=== PATIENT | male | born 1950 | race Caucasian/White ===

== ENCOUNTER → 2020-10-20 07:58 | Outpatient (BNVA) | payer OTHER, SELFPAY | PROVIDERS: Family Provider Internal Medicine; PCP Family Medicine; Visit Provider Urology | DX: N40.1 Benign prostatic hyperplasia with lower urinary tract symptoms (principal); N39.41 Urge incontinence; C61 Malignant neoplasm of prostate; N13.8 Other obstructive and reflux uropathy; R39.9 Unspecified symptoms and signs involving the genitourinary system | CPT/HCPCS: 81003 ==

== ENCOUNTER 2020-11-17 10:57 | Emergency (ER) | payer OTHER, SELFPAY ==
[2020-11-17 11:04] VITALS: BP 220/118; PULSE 74; RESP 15; TEMP 36.6; O2SAT 96; BMI 36.3
--- NOTE | 2020-11-17 11:22 | XRR_ITS ---
PROCEDURE INFORMATION: Exam: XR Chest Exam date and time: 11/17/2020 11:23 AM Age: 70 years old Clinical indication: Chest pain; Type not specified TECHNIQUE: Imaging protocol: XR of the chest. Views: 1 view. COMPARISON: No relevant prior studies available. FINDINGS: Lungs: Unremarkable. No consolidation. Pleural spaces: Unremarkable. No pleural effusion. No pneumothorax. Heart/Mediastinum: Unremarkable. No cardiomegaly. Bones/joints: Unremarkable. XR/XR chest 1V portable [id number] IMPRESSION: No acute findings.
--- NOTE | 2020-11-17 11:22 | ECG_ITS ---
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 Measurements Intervals [place] Rate: 62 P: 62 [place]: 136 QRS: -48 QRSD: 126 T: 3 QT: 448 QTc: 457 Interpretive Statements SINUS RHYTHM RIGHT BUNDLE BRANCH BLOCK [120+ ms QRS DURATION, UPRIGHT V1, 40+ ms S IN I/aVL/V4/V5/V6] LEFT ANTERIOR FASCICULAR BLOCK [QRS AXIS <= -45, QR IN I, RS IN II] MODERATE VOLTAGE CRITERIA FOR LVH, CONSIDER NORMAL VARIANT [MEETS CRITERIA IN ONE OF: R(aVL), S(V1), R(V5), R(V5/V6)+S(V1)] No previous ECG available for comparison Electronically Signed On 11-17-2020 20:10:53 CDT by Adrian Palacios M.D. [email or web address] hospitalPromise[facility].[employer]/store/NU/[id number] cesar
--- NOTE | 2020-11-17 11:32 | ED_ITS ---
HPI - Chest Pain General: Chief Complaint: Chest Pain Stated Complaint: CP LAST NIGHT AND TODAY Time Seen by Provider: 11/17/20 11:06 History of Present Illness: HPI narrative: 70-year-old male presents emergency room with chest pain he had a couple of weeks ago then last night had episode again where the chest pain both times were at rest usually resolves spontaneously after 30 minutes. 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 He has no known history of heart disease. He is not diabetic. MD complaint: chest discomfort Onset (ago): hour(s) Timing of current episode: episodic Prior episodes: Yes Onset: during rest Pain location: substernal and left chest Pain radiation: back Severity: moderate Quality: tightness and heaviness Relieving factors: rest Exacerbating factors: nothing Associated symptoms: Deny abdominal pain, diaphoresis, dyspnea, fever(s), leg edema, nausea, palpitations, sense of impending doom, syncope or vomiting Treatment prior to arrival: none Review of Systems Const: Denies: fever(s) or diaphoresis Card: Denies: palpitations or syncope Resp: Denies: dyspnea GI: Denies: abdominal pain, nausea or vomiting [facility] ED PFSH: Medical History (Updated 11/17/20 @ 14:43 by Neftaly Sanchez DO) Adenocarcinoma of prostate BPH w urinary obs/LUTS Chronic prostatitis Hypertension Obesity PTSD (post-traumatic stress disorder) Type 2 diabetes mellitus Surgical History History of back surgery History of left knee replacement History of tonsillectomy Family History Father , [address] No problems noted. Mother , IN HER 80'S Cancer Lung Social History (Updated 11/17/20 @ 11:11 by Shahzad Cantrell RN) Smoking and tobacco status: former smoker Alcohol intake: current Alcohol intake frequency: holidays/special occasions only Substance/Drug Use: never Marital status: Current occupational status: retired History of recent travel: No Physical Exam Const: COMMON NORMALS: no acute distress GENERAL APPEARANCE: cooperative and comfortable ORIENTATION/CONSCIOUSNESS: Yes awake, Yes oriented to person, Yes oriented to place and Yes oriented to time HENMT: COMMON NORMALS: normocephalic, atraumatic and hearing grossly normal bilaterally HEAD & SCALP: normocephalic and atraumatic Neck/C-Spine: COMMON NORMALS: no JVD Resp: COMMON NORMALS: normal respiratory effort, No retractions, No use of accessory muscles and clear to auscultation bilaterally AUSCULTATION: clear to auscultation bilaterally Cardio: COMMON NORMALS: no JVD, regular rate, regular rhythm and No murmurs present (Cardio) RATE: regular rate RHYTHM: regular rhythm GI: COMMON NORMALS: Soft to palpation and No hepatosplenomegaly present AUSCULTATION: Yes normoactive bowel sounds PALPATION: Yes Soft to palpation, No Tenderness to palpation present (GI), No Guarding due to palpation present (GI) and Yes No hepatosplenomegaly present Extremity: COMMON NORMALS: normal to inspection, capillary refill normal, no clubbing, cyanosis or edema, no calf tenderness and no pedal edema Neuro: SENSORIUM/ORIENTATION: Yes oriented to person, Yes oriented to place and Yes oriented to time Skin: COMMON NORMALS: no rashes or lesions noted GENERAL SKIN EXAM: no rashes or lesions noted Course Vital Signs: Vital signs: Vital Signs Temperature 97.9 F 11/17/20 11:04 Pulse Rate 55 L 11/17/20 14:59 Respiratory Rate 19 H 11/17/20 14:59 Blood Pressure 195/95 11/17/20 14:59 Pulse Oximetry 96 11/17/20 14:59 MDM - Chest Pain MDM Narrative: Medical decision making narrative: 2-hour troponin is negative. Organ to take him off his Viagra start him on isosorbide mononitrate and baby aspirin for any recurrent symptoms return. He is feeling fine at this time. We will set him up for an outpatient stress test. Return if he has any worsening of symptoms. Lab Data: Attestation: I reviewed the patient's lab results. Labs: Lab Results 11/17/20 11/17/20 11/17/20 Range/Units 11:10 11:10 11:10 WBC 5.9 (4.0-10.0) 10^3/ uL RBC 4.93 (4.1-5.3) 10^6/u L Hgb 13.8 (11.7-16.6) g/dL Hct 43.9 (42.0-52.0) % MCV 89.0 (80-94) fL MCH 28.0 (28.0-34.0) pg MCHC 31.4 (30.0-36.0) g/dL RDW 14.3 (12.1-15.1) % Plt Count 210 (130-400) 10^3/c mm MPV 9.6 (7.4-10.4) fL Neut % (Auto) 64.6 % Lymph % (Auto) 22.3 % Jewell % (Auto) 6.2 % Eos % (Auto) 4.7 % Baso % (Auto) 1.0 % Neut # (Auto) 3.83 (1.8-7.7) 10^3/u L Lymph # (Auto) 1.3 (0.8-4.8) 10^3/u L Jewell # (Auto) 0.4 (0.2-0.9) 10^3/u L Eos # (Auto) 0.3 (0.0-0.8) 10^3/u L Baso # (Auto) 0.1 (0.0-0.1) 10^3/u L Nucleated RBC % (a uto) 0 % Nucleated RBCs # 0.0 /100WBC Sodium 136 (136-145) mmol/L Potassium 4.3 (3.5-5.1) mmol/L Chloride 98 (98-107) mmol/L Carbon Dioxide 28 (22-29) mmol/L Anion Gap 14.3 (5-19) BUN 10 (8-23) mg/dL Creatinine 0.8 (0.7-1.2) mg/dL GFR Calculation Not Reportable Glucose 161 H (65-115) mg/dL Calculated Osmolal ity 285 (285-295) mOsm/k g Calcium 8.9 (8.5-10.5) mg/dL Total Bilirubin 0.4 (0.15-1.2) mg/dL AST 10 (0-40) U/L ALT 12 (0-41) U/L Alkaline Phosphata se 82 (40-130) IU/L Troponin T Baselin e 16 H (0-15) ng/L Troponin T 120 Min christian (0-15) ng/L Delta Troponin T (0-10) ABS# Total Protein 7.1 (6.6-8.7) g/dL Albumin 4.2 (3.5-5.2) g/dL Globulin 2.9 (1.3-4.6) g/dL 11/17/20 Range/Units 13:18 WBC (4.0-10.0) 10^3/ uL RBC (4.1-5.3) 10^6/u L Hgb (11.7-16.6) g/dL Hct (42.0-52.0) % MCV (80-94) fL MCH (28.0-34.0) pg MCHC (30.0-36.0) g/dL RDW (12.1-15.1) % Plt Count (130-400) 10^3/c mm MPV (7.4-10.4) fL Neut % (Auto) % Lymph % (Auto) % Jewell % (Auto) % Eos % (Auto) % Baso % (Auto) % Neut # (Auto) (1.8-7.7) 10^3/u L Lymph # (Auto) (0.8-4.8) 10^3/u L Jewell # (Auto) (0.2-0.9) 10^3/u L Eos # (Auto) (0.0-0.8) 10^3/u L Baso # (Auto) (0.0-0.1) 10^3/u L Nucleated RBC % (a uto) % Nucleated RBCs # /100WBC Sodium (136-145) mmol/L Potassium (3.5-5.1) mmol/L Chloride (98-107) mmol/L Carbon Dioxide (22-29) mmol/L Anion Gap (5-19) BUN (8-23) mg/dL Creatinine (0.7-1.2) mg/dL GFR Calculation Glucose (65-115) mg/dL Calculated Osmolal ity (285-295) mOsm/k g Calcium (8.5-10.5) mg/dL Total Bilirubin (0.15-1.2) mg/dL AST (0-40) U/L ALT (0-41) U/L Alkaline Phosphata se (40-130) IU/L Troponin T Baselin e (0-15) ng/L Troponin T 120 Min christian 14.64 (0-15) ng/L Delta Troponin T -1.36 L (0-10) ABS# Total Protein (6.6-8.7) g/dL Albumin (3.5-5.2) g/dL Globulin (1.3-4.6) g/dL Discharge Plan Discharge Patient Disposition: Home Clinical Impression: Chest pain Condition: Stable Prescriptions: New isosorbide mononitrate 30 mg tablet extended release 24 hr 30 mg PO DAILY Qty: 30 RF: 0 aspirin 81 mg tablet,delayed release (DR/EC) 81 mg PO DAILY Qty: 30 RF: 0 Discontinued sildenafil 100 mg tablet 100 mg PO PRN RF: 0 No Action tamsulosin 0.4 mg capsule 0.8 mg PO QPM RF: 0 trazodone 100 mg tablet 150 mg PO BEDTIME PRN (Reason: Sleep) RF: 0 rivaroxaban 20 mg tablet 20 mg PO QPM RF: 0 oxybutynin chloride 5 mg tablet 5 mg PO BID Qty: 60 RF: 3 doxycycline monohydrate 100 mg Tablet 100 mg PO BEDTIME RF: 0 Tylenol Extra Strength 500 mg Tablet 1,000 mg PO Q4H PRN (Reason: tooth pain) RF: 0 metformin 1,000 mg Tablet 1,000 mg PO BEDTIME RF: 0 lisinopril-hydrochlorothiazide 20-25 mg Tablet 1 tab PO .QD PT UNSURE TAKES RF: 0 [place] 1 tab PO Q6H PRN (Reason: Pain) RF: 0 Vitamin B-12 1 tab PO DAILY PRN (Reason: unknown) RF: 0 Discharge Orders: Discharge ED (Routine); Ordered 11/17/20 Ordered By: Neftaly Sanchez Referrals: Carmen Connell MD [Primary Care Provider] - Discharge Diet: Usual diet Discharge Activity: Resume usual activity Patient Instructions: Opioid Safety Activity Restrictions/Additional Instructions: Very important that you do not take any of the sildenafil. Start aspirin daily and isosorbide mononitrate once daily follow-up with your primary care docto within the week. Case management will help arrange for a stress test. Coding Level of Care Code ED Senior Web Analyst for Erlin Fwd Exam Comprehensive
[2020-11-17 11:35] LABS: Basophils # 0.1 10^3/uL (0.0-0.1); Eosinophils # 0.3 10^3/uL (0.0-0.8); Eosinophils % 4.7 %; Hematocrit 43.9 % (42.0-52.0); Hemoglobin 13.8 g/dL (11.7-16.6); Lymphocytes # 1.3 10^3/uL (0.8-4.8); Lymphocytes % 22.3 %; Mean Corpuscular HGB Conc 31.4 g/dL (30.0-36.0); Mean Platelet Volume 9.6 fL (7.4-10.4); Monocytes # 0.4 10^3/uL (0.2-0.9); Monocytes % 6.2 %; Neutrophils # 3.83 10^3/uL (1.8-7.7); Neutrophils % 64.6 %; Nucleated Red Blood Cells % 0 %; Platelet Count 210 10^3/cmm (130-400); Red Blood Count 4.93 10^6/uL (4.1-5.3); Red Cell Distribution Width 14.3 % (12.1-15.1); White Blood Count 5.9 10^3/uL (4.0-10.0)
[2020-11-17 11:50] LABS: Alanine Aminotransferase 12 U/L (0-41); Albumin Level 4.2 g/dL (3.5-5.2); Alkaline Phosphatase 82 IU/L (40-130); Anion Gap 14.3 (5-19); Aspartate Amino Transferase 10 U/L (0-40); Blood Urea Nitrogen 10 mg/dL (8-23); Calcium 8.9 mg/dL (8.5-10.5); Carbon Dioxide 28 mmol/L (22-29); Chloride 98 mmol/L (98-107); Globulin 2.9 g/dL (1.3-4.6); Glucose 161 mg/dL (65-115); Osmolality Calculated 285 mOsm/kg (285-295); Potassium 4.3 mmol/L (3.5-5.1); Sodium 136 mmol/L (136-145); Total Bilirubin 0.4 mg/dL (0.15-1.2); Total Protein 7.1 g/dL (6.6-8.7); Troponin(5th) Baseline 16 ng/L (0-15)
[2020-11-17 11:52] VITALS: BP 181/94; PULSE 62; RESP 22; O2SAT 97
[2020-11-17] MEDS: aspirin 81 mg Chew Tablet 324 MG PO (11:56)
[2020-11-17 12:04] VITALS: BP 190/107; PULSE 62; RESP 21; O2SAT 98
--- NOTE | 2020-11-17 12:10 | PC.PHAR ---
pt states he takes care of his own medications-pt states he is unsure if he is taking lisinopril/hctz this medication was on the pts va med list-pt states he takes 1000mg of metformin at once-pts va med list had 1000mg take 500mg bid pt states its easier to take all at once-pt states he hasnt been taking vit d3 for a few weeks-vit d3 3000units daily was on pts va med list-pt states he has been taking norco for 3-4 days-pt states it was a very old rx that [facility] got from the [facility] and states he is unsure of the mg-medication not on va med list
[2020-11-17 13:04] VITALS: BP 191/103; PULSE 59; RESP 21; O2SAT 98
--- NOTE | 2020-11-17 13:22 | ECG_ITS ---
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 Measurements Intervals [place] Rate: 55 P: 44 [place]: 151 QRS: -40 QRSD: 133 T: 0 QT: 476 QTc: 456 Interpretive Statements SINUS BRADYCARDIA LEFT AXIS DEVIATION [QRS AXIS < -30] RIGHT BUNDLE BRANCH BLOCK [120+ ms QRS DURATION, UPRIGHT V1, 40+ ms S IN I/aVL/V4/V5/V6] MODERATE VOLTAGE CRITERIA FOR LVH, CONSIDER NORMAL VARIANT [MEETS CRITERIA IN ONE OF: R(aVL), S(V1), R(V5), R(V5/V6)+S(V1)] Compared to ECG 11/17/2020 11:07:04 Left-axis deviation now present Sinus rhythm no longer present Left anterior fascicular block no longer present Electronically Signed On 11-17-2020 20:14:00 CDT by Adrian Palacios M.D. [email or web address]/store/[id number]
[2020-11-17 13:50] LABS: Troponin 5 2HR 14.64 ng/L (0-15)
[2020-11-17 13:52] LABS: Troponin 5 2HR Delta -1.36 ABS# (0-10)
[2020-11-17 14:00] VITALS: BP 195/95; PULSE 55; RESP 19; O2SAT 96
[2020-11-17 14:59] VITALS: BP 195/95; PULSE 55; RESP 19; O2SAT 96
--- NOTE | 2020-12-26 13:32 | DCPLANNER ---
comp field case manager had message to schedule an out patient stress test for patient. comp field case manager faxed signed order to centralized scheduling. comp field case manager will call for appointment information.
--- NOTE | 2021-01-01 08:27 | DCPLANNER ---
Addendum entered by Nicole Field 03/03/21 11:37: Patient had a follow up appointment scheduled for stress test on 01.26.21 - patient did not attend appointment. Original Note: Patient has a stress test scheduled for Tuesday, January at 12:15.
== END 2020-11-17 14:59 | disposition home or self-care (01) ==
PROVIDERS: Emergency Provider Family Medicine; PCP Family Medicine
DX: R07.9 Chest pain, unspecified (principal); I10 Essential (primary) hypertension; Z85.46 Personal history of malignant neoplasm of prostate; E11.9 Type 2 diabetes mellitus without complications; Z87.891 Personal history of nicotine dependence
CPT/HCPCS: 36415; 71045; 80053; 84484; 85025; 93005; 99284

== ENCOUNTER → 2020-11-18 13:42 | Outpatient (BNVA) | payer OTHER, SELFPAY | PROVIDERS: PCP Family Medicine; Referring Provider Family Medicine; Visit Provider Podiatrist Foot & Ankle Surgery | DX: M79.672 Pain in left foot (principal); M79.671 Pain in right foot | CPT/HCPCS: 73630 ==

== ENCOUNTER → 2021-04-29 15:40 | Outpatient (BNVA) | payer OTHER, SELFPAY | PROVIDERS: PCP Family Medicine; Visit Provider Urology | DX: R39.9 Unspecified symptoms and signs involving the genitourinary system (principal); C61 Malignant neoplasm of prostate | CPT/HCPCS: 81003 ==

== ENCOUNTER → 2021-08-14 10:44 | Outpatient (BNVA) | payer OTHER, SELFPAY | PROVIDERS: PCP Family Medicine; Visit Provider Internal Medicine | DX: M19.90 Unspecified osteoarthritis, unspecified site (principal); M54.50 Low back pain, unspecified; Z11.59 Encounter for screening for other viral diseases; Z87.891 Personal history of nicotine dependence | CPT/HCPCS: 99204 ==

== ENCOUNTER → 2021-09-14 10:47 | Outpatient (BNVA) | payer OTHER, SELFPAY | PROVIDERS: PCP Family Medicine; Visit Provider Internal Medicine | DX: M19.90 Unspecified osteoarthritis, unspecified site (principal); R76.8 Other specified abnormal immunological findings in serum; R70.0 Elevated erythrocyte sedimentation rate; M54.50 Low back pain, unspecified; E11.22 Type 2 diabetes mellitus with diabetic chronic kidney disease; Z79.84 Long term (current) use of oral hypoglycemic drugs; Z87.891 Personal history of nicotine dependence | CPT/HCPCS: 99214 ==

== ENCOUNTER → 2021-09-22 12:42 | Outpatient (BNVA) | payer OTHER, SELFPAY | PROVIDERS: PCP Family Medicine; Visit Provider Urology | DX: C61 Malignant neoplasm of prostate (principal); R39.9 Unspecified symptoms and signs involving the genitourinary system | CPT/HCPCS: 81003; 84153 ==

== ENCOUNTER 2022-01-26 09:02 | Outpatient (CLI) | payer OTHER, SELFPAY ==
[2022-01-26 10:00] LABS: Alanine Aminotransferase 16 U/L (0-41); Alkaline Phosphatase 78 IU/L (40-130); Anion Gap 14.5 (5-19); Aspartate Amino Transferase 15 U/L (0-40); Blood Urea Nitrogen 17 mg/dL (8-23); C Reactive Protein 12.4 mg/L (0.0-4.9); Calcium 8.7 mg/dL (8.5-10.5); Carbon Dioxide 26 mmol/L (22-29); Chloride 100 mmol/L (98-107); Creatine Phosphokinase 112 U/L (39-308); Globulin 3.5 g/dL (1.3-4.6); Glucose 99 mg/dL (65-115); Osmolality Calculated 284 mOsm/kg (285-295); Potassium 4.5 mmol/L (3.5-5.1); Sodium 136 mmol/L (136-145); Total Bilirubin 0.3 mg/dL (0.15-1.2); Total Protein 7.5 g/dL (6.6-8.7)
[2022-01-26 10:01] LABS: Basophils # 0.1 10^3/uL (0.0-0.1); Eosinophils # 0.3 10^3/uL (0.0-0.8); Eosinophils % 4.1 %; Hematocrit 43.7 % (42.0-52.0); Hemoglobin 13.8 g/dL (11.7-16.6); Lymphocytes # 1.3 10^3/uL (0.8-4.8); Lymphocytes % 18.5 %; Mean Corpuscular HGB Conc 31.6 g/dL (30.0-36.0); Mean Corpuscular Hemoglobin 27.7 pg (28.0-34.0); Mean Corpuscular Volume 87.6 fl (80-94); Mean Platelet Volume 9.9 fL (7.4-10.4); Monocytes # 0.4 10^3/uL (0.2-0.9); Monocytes % 5.9 %; Neutrophils # 4.98 10^3/uL (1.8-7.7); Neutrophils % 69.5 %; Nucleated Red Blood Cells % 0 %; Platelet Count 234 10^3/cmm (130-400); Red Blood Count 4.99 10^6/uL (4.1-5.3); White Blood Count 7.2 10^3/uL (4.0-10.0)
[2022-01-26 10:24] LABS: Estmated Average Glucose 163; Hemoglobin A1C 7.3 % (4.0-6.0)
[2022-01-27 12:57] LABS: Anti-Double Strand DNA AB 1 IU/mL
[2022-01-27 15:12] LABS: Centromere B Antibody <1.0 NEG AI (<1.0 NEG); SCL 70 <1.0 NEG AI (<1.0 NEG); SS A Ro Sjogrens Antibody <1.0 NEG AI (<1.0 NEG); SS-B/LA IGG <1.0 NEG AI (<1.0 NEG)
[2022-01-28 12:03] LABS: Cyclic Citrullinated Peptide <16 UNITS
[2022-02-05 13:59] LABS: Erythrocyte Sedimentation Rate 22 mm/hr (0-10)
== END 2022-01-26 09:03 | disposition home or self-care (01) ==
LOC: LAB 09:15
PROVIDERS: PCP Family Medicine; Visit Provider Internal Medicine
DX: M54.50 Low back pain, unspecified (principal); C61 Malignant neoplasm of prostate; M19.90 Unspecified osteoarthritis, unspecified site; R39.9 Unspecified symptoms and signs involving the genitourinary system; R76.8 Other specified abnormal immunological findings in serum; R70.0 Elevated erythrocyte sedimentation rate; E11.9 Type 2 diabetes mellitus without complications
CPT/HCPCS: 80053; 82550; 83036; 83516; 85025; 85651; 86140; 86200; 86225; 86235

== ENCOUNTER → 2022-02-04 13:47 | Outpatient (BNVA) | payer OTHER, SELFPAY | PROVIDERS: PCP Family Medicine; Visit Provider Internal Medicine | DX: M19.90 Unspecified osteoarthritis, unspecified site (principal); R76.8 Other specified abnormal immunological findings in serum; R70.0 Elevated erythrocyte sedimentation rate; E11.9 Type 2 diabetes mellitus without complications; Z79.84 Long term (current) use of oral hypoglycemic drugs | CPT/HCPCS: 99214 ==

== ENCOUNTER → 2022-03-23 14:03 | Outpatient (BNVA) | payer OTHER, SELFPAY | PROVIDERS: PCP Family Medicine; Visit Provider Urology | DX: R39.9 Unspecified symptoms and signs involving the genitourinary system (principal); C61 Malignant neoplasm of prostate | CPT/HCPCS: 51798; 81003; 99213 ==

== ENCOUNTER 2022-05-28 13:21 | Outpatient (CLI) | payer OTHER, SELFPAY ==
--- NOTE | 2022-05-28 | CT_ITS ---
WS: [id number] CT LUMBAR SPINE TECHNIQUE: Noncontrast CT of the lumbar spine with coronal and sagittal reformatted images. CLINICAL INFORMATION: LBP COMPARISON: None. DLP: 1837.[address] scans at [facility] use at least one of these dose optimization techniques: automated e xposure control; mA and/or kV adjustment per patient size (includes targeted exams where dose is matc hed to clinical indication); or iterative reconstruction. FINDINGS: Mild lumbar curve. No acute compression. Disc space narrowing worse at L2-L3 L3-L4 L4-L5 with vacuum disc phenomenon. Hypertrophic changes lumbar spine. Prior laminectomy defects L3-L5 with decompression of the spinal c anal. L1-L2: Mild disc bulging with a shallow central protrusion. Slight effacement of ventral thecal sac. Narrowing of the subarticular recess bilaterally. Moderate facet arthropathy. Mild RIGHT foraminal na rrowing. L2-L3: Slight retrolisthesis. Disc osteophyte complex with endplate ridging. Shallow LEFT pericentral protrusion impinges the traversing LEFT L3 nerve root in the subarticular recess. Moderate central c anal stenosis. Moderate RIGHT foraminal narrowing. L3-L4: Disc osteophyte complex endplate ridging. Prior laminectomy defects. Narrowing of the subartic ular recess bilaterally. Disc bulging with osteophytic ridging. Moderate facet arthropathy. Moderate bilateral foraminal narrowing impinges the LEFT greater than RIGHT exiting L3 nerve roots. L4-L5: Disc osteophyte complex with endplate ridging. Slight effacement of ventral thecal sac. Chavo ctomy defects. Narrowing subarticular recess bilaterally. Moderate bilateral foraminal narrowing. Wor se on the LEFT. L5-S1: Mild annular bulging. Slight effacement of ventral thecal sac. Slight contact of the RIGHT S1 nerve root. Mild RIGHT foraminal narrowing. Visualized pelvic bony structures: Normal. Paravertebral soft tissues: Normal. CT/CT lumbar spine wo con* [id number] IMPRESSION: 1. Mild lumbar curve. No acute compression. 2. Prior laminectomy defects L3-L5 with spinal canal decompression. 3. Disc space narrowing worse at L2-L3 L3-L4 and L4-L5 with vacuum disc phenom enon and disc osteophyte complexes. 4. Mild central canal stenosis L1-L2 and moderate central canal stenosis L2-L3 . 5. Multilevel moderate bony foraminal narrowing worse at RIGHT L2-L3, LEFT L3- L4, LEFT L4-L5. 6. Small central protrusions L3-L4 L4-L5 with slight impingement on the subart icular recess bilaterally. 7. Moderate to advanced arthropathy L2-L3. 8. Advanced arthropathy L5-S1.
--- NOTE | 2022-05-28 13:43 | XR_ITS ---
WS: [id number] Lumbar spine with flexion, extension, and neutral lateral, 05/28/2022 Clinical Data: Post Laminectomy Syndrome Comparison: None. Findings: There is degenerative disc narrowing at all levels from L2-L3 to L5-S1. There is osteoarthritic spurr ing of the lower thoracic and all the lumbar vertebral bodies. No compression fractures are seen. On flexion and extension there is no subluxation but there is limitation of motion.. There is calcification in the wall of the abdominal aorta but no aneurysm. XR/XR lumbar spine f/e only [id number] Impression: 1. Multilevel degenerative disc narrowing. 2. Multilevel osteoarthritic spurring. 3. There is no subluxation but there is limitation of motion on flexion and ext ension.
== END 2022-05-28 13:22 | disposition home or self-care (01) ==
LOC: RAD 13:22
PROVIDERS: PCP Family Medicine; Visit Provider Nurse Practitioner
DX: M96.1 Postlaminectomy syndrome, not elsewhere classified (principal); M48.061 Spinal stenosis, lumbar region without neurogenic claudication; M48.07 Spinal stenosis, lumbosacral region; M47.817 Spondylosis without myelopathy or radiculopathy, lumbosacral region
CPT/HCPCS: 72120; 72131

== ENCOUNTER → 2022-09-28 14:31 | Outpatient (BNVA) | payer OTHER, SELFPAY | PROVIDERS: PCP Family Medicine; Referring Provider Family Medicine; Visit Provider Internal Medicine | DX: E11.9 Type 2 diabetes mellitus without complications (principal); E78.2 Mixed hyperlipidemia; Z79.84 Long term (current) use of oral hypoglycemic drugs | CPT/HCPCS: 99204 ==

== ENCOUNTER → 2022-12-28 15:11 | Outpatient (BNVA) | payer OTHER, SELFPAY | PROVIDERS: PCP Family Medicine; Visit Provider Internal Medicine | DX: E11.9 Type 2 diabetes mellitus without complications (principal); E78.2 Mixed hyperlipidemia; Z79.84 Long term (current) use of oral hypoglycemic drugs | CPT/HCPCS: 99214 ==

== ENCOUNTER → 2023-03-31 14:23 | Outpatient (BNVA) | payer OTHER, SELFPAY | PROVIDERS: PCP Family Medicine; Visit Provider Internal Medicine | DX: E11.9 Type 2 diabetes mellitus without complications (principal); E78.2 Mixed hyperlipidemia; Z79.84 Long term (current) use of oral hypoglycemic drugs | CPT/HCPCS: 36415; 80053; 80061; 82044; 83036; 99214 ==

== ENCOUNTER 2023-08-30 06:00 | Outpatient (RCR) | payer OTHER, SELFPAY | END 2023-09-07 23:59 | disposition home or self-care (01) | LOC: WPT 06:00 | PROVIDERS: Visit Provider Family Medicine | DX: M54.59 Other low back pain (principal) | CPT/HCPCS: 97161 ==

== ENCOUNTER 2023-09-08 06:00 | Outpatient (RCR) | payer OTHER, SELFPAY | END 2023-10-06 23:59 | disposition home or self-care (01) | LOC: WPT 06:00 | PROVIDERS: Visit Provider Family Medicine | DX: M06.4 Inflammatory polyarthropathy (principal) | CPT/HCPCS: 97110; 97112; 97530 ==

== ENCOUNTER 2023-10-07 06:00 | Outpatient (RCR) | payer OTHER, SELFPAY | END 2023-11-06 23:59 | disposition home or self-care (01) | LOC: WPT 06:00 | PROVIDERS: Visit Provider Family Medicine | DX: M06.4 Inflammatory polyarthropathy (principal) | CPT/HCPCS: 97110; 97112; 97530 ==

== ENCOUNTER → 2023-10-25 13:46 | Outpatient (BNVA) | payer OTHER, SELFPAY | PROVIDERS: Referring Provider Family Medicine; Visit Provider Orthopaedic Surgery | DX: M54.50 Low back pain, unspecified (principal); G89.29 Other chronic pain | CPT/HCPCS: 99204 ==

== ENCOUNTER → 2023-11-24 09:03 | Outpatient (BNVA) | payer OTHER, SELFPAY | PROVIDERS: PCP Family Medicine; Visit Provider Anesthesiology Pain Medicine | DX: G89.29 Other chronic pain; M47.816 Spondylosis without myelopathy or radiculopathy, lumbar region; Z98.890 Other specified postprocedural states | CPT/HCPCS: 99204 ==

== ENCOUNTER → 2023-11-30 13:53 | Outpatient (BNVA) | payer OTHER, SELFPAY | PROVIDERS: PCP Family Medicine; Visit Provider Anesthesiology Pain Medicine | DX: M47.816 Spondylosis without myelopathy or radiculopathy, lumbar region (principal); G89.29 Other chronic pain | CPT/HCPCS: 64493; 64494; 64495; J3490 ==

== ENCOUNTER → 2023-12-27 09:35 | Outpatient (BNVA) | payer OTHER, SELFPAY | PROVIDERS: PCP Family Medicine; Visit Provider Anesthesiology Pain Medicine | DX: G89.29 Other chronic pain; M47.816 Spondylosis without myelopathy or radiculopathy, lumbar region; Z98.890 Other specified postprocedural states | CPT/HCPCS: 99215 ==

== ENCOUNTER → 2023-12-29 08:05 | Outpatient (BNVA) | payer OTHER, SELFPAY | PROVIDERS: PCP Family Medicine; Visit Provider Orthopaedic Surgery | DX: Z98.890 Other specified postprocedural states (principal); M54.50 Low back pain, unspecified; G89.29 Other chronic pain | CPT/HCPCS: 36415; 80053; 81003; 83036; 85025; 99214 ==

== ENCOUNTER → 2024-08-14 15:41 | Outpatient (BNVA) | payer OTHER, SELFPAY | PROVIDERS: PCP Family Medicine; Visit Provider Orthopaedic Surgery | DX: Z01.818 Encounter for other preprocedural examination (principal); M54.50 Low back pain, unspecified; G89.29 Other chronic pain; E11.9 Type 2 diabetes mellitus without complications | CPT/HCPCS: 36415; 72110; 80053; 81001; 83036; 85025; 99214 ==

== ENCOUNTER → 2024-09-07 11:24 | Outpatient (BNVA) | payer OTHER, SELFPAY | PROVIDERS: PCP Family Medicine; Visit Provider Family Medicine | DX: Z01.818 Encounter for other preprocedural examination (principal) | CPT/HCPCS: 93005 ==

== ENCOUNTER 2024-09-24 05:14 | Day surgery (SDC) | payer OTHER, SELFPAY ==
--- NOTE | 2024-09-22 10:42 | ANES.PREANE2 ---
Pre-Anesthetic Assessment Height/Weight: Height 6 ft Preop Diagnosis: Facet arthropathy Operation Date: 09/24/24 07:00 Proposed Procedures p Spinal Fusion PSF(Not Applicable) - Porter Pate DO s Posterior Lumbar Interbody Fusion PLIF(Not Applicable) - Porter Bandar DO Herlinda s Lumbopelvic Fixation(Not Applicable) - Porter H DO Herlinda s Sacroiliac Joint Fusion SI Joint Fusion(Bilateral) - Porter Pate DO Was Beta Martha taken within 24 hours: N/A Was Clonidine taken within 24 hours: N/A Social No alcohol and No tobacco Quit smoking over 40 years ago Exam alert, oriented x 3, clear to auscultation bilaterally and regular rate & rhythm Airway Submandibular: within normal limits Cervical ROM: within normal limits Mallampati: Class III Dentition: caps and full Comments: Comments: Missing In the front, denies any loose Anesthetic Plan ASA status: 3 Anesthesia: General Other: No prior issues with anesthesia NPO since midnight History of GERD on omeprazole Hypertension on lisinopril Prior adenocarcinoma of the prostate On chronic Xarelto for history of blood clots following knee procedure. Patient has been off this over a week Type 2 diabetes, no insulin. Will check preop BS Labs reviewed 08/14/2024 and acceptable for procedure EKG showing sinus rhythm with RBBB and left anterior fascicular block Plan for GETA Medications/Allergies Home Medications ?Medication ?Instructions ?Recorded ?Confirmed ?Last Taken ?Type rivaroxaban 20 mg tablet 20 mg PO QPM 10/20/20 09/24/24 09/22/24 History tamsulosin 0.4 mg capsule 0.8 mg PO QPM 10/20/20 09/24/24 09/23/24 18:00 History lidocaine 4 % topical patch 1 patch topical DAILY PRN Pain 08/14/21 09/24/24 Unknown History (Aspercreme (lidocaine)) lisinopril 20 mg tablet 20 mg PO DAILY 08/14/21 09/24/24 09/22/24 History flash glucose scanning reader #1 ea 12/09/22 09/24/24 Unknown Rx (FreeStyle [place] 2 [place]) flash glucose sensor (FreeStyle #6 ea 12/09/22 09/24/24 Unknown Rx Fortunato 2 Sensor kit) doxycycline hyclate 100 mg tablet 100 mg PO DAILY 09/07/24 09/24/24 09/22/24 History duloxetine 30 mg capsule,delayed 30 mg PO DAILY 09/07/24 09/24/24 09/22/24 History release empagliflozin 12.5 mg-metformin ER 1 tab PO DAILY 09/07/24 09/24/24 09/20/24 History 1,000 mg tablet,extended rel 24 hr ezetimibe 10 mg tablet 10 mg PO DAILY 09/07/24 09/24/24 09/22/24 History omeprazole 10 mg capsule,delayed 10 mg PO DAILY 09/07/24 09/24/24 09/22/24 History release sitagliptin 100 mg tablet 100 mg PO DAILY 09/07/24 09/24/24 09/20/24 History Allergies Allergy/AdvReac Type Severity Reaction Status Date / Time Penicillins Allergy NA Verified 09/20/24 11:00 Sulfa (Sulfonamide Allergy Unknown Verified 09/20/24 11:00 Antibiotics) PFS Anesthesia Medical History ESR raised KARLA positive Obesity PTSD (post-traumatic stress disorder) Hypertension Type 2 diabetes mellitus BPH w urinary obs/LUTS Chronic prostatitis Adenocarcinoma of prostate 4+3 Dx: 2017 Tx: Combination Therapy: XBRT/ADT F/u: Low PSAs and normal DREs Surgical History History of back surgery History of left knee replacement History of tonsillectomy Family History Father , 54 [place] Heart attack Hyperlipidemia Hypertension Mother , IN HER 80'S Cancer Lung Grandfather Heart attack Denies family history of Rheumatoid arthritis Diabetes Lupus Stroke Social History Smoking and tobacco/nicotine status: never used tobacco/nicotine Alcohol intake: current Alcohol intake frequency: few times a week Substance/Drug Use: never Marital status: Current occupational status: retired Data Anesthesia Cardiac Studies: No Data to Display
[2024-09-24] VITALS (10 sets, daily range): BP systolic 113–133; BP diastolic 66–79; PULSE 68–100; RESP 16–20; TEMP 36.2–36.7; O2SAT 94–99; BMI 35.8
[2024-09-24 06:31] LABS: Glucose Point of Care 153 mg/dL (70-110)
--- NOTE | 2024-09-24 06:32 | W.PM.OPSUD ---
Surgery/Procedure H&P Update DATE OF PROCEDURE: September 24, 2024 DATE H&P PERFORMED: 09/07/24 H&P UPDATE INFORMATION: I have reviewed H&P completed within last 30 days, I have examined patient prior to procedure and Changes to prior documentation as noted here CHANGES TO PREVIOUS DOCUMENTATION: Will decompress L2-3 PREOP DIAGNOSIS: Lumbar stenosis with neurogenic claudication PLANNED PROCEDURE: Operation Date: 09/24/24 07:00 Proposed Procedures p Spinal Fusion PSF(Not Applicable) - Porter Pate DO s Posterior Lumbar Interbody Fusion PLIF(Not Applicable) - DO lan Huber Lumbopelvic Fixation(Not Applicable) - DO lan Huber Sacroiliac Joint Fusion SI Joint Fusion(Bilateral) - Porter Pate DO
[2024-09-24] MEDS: sodium chloride 0.9% 1,000 ML 30 ML IV (06:48)
[2024-09-24] MEDS: clindamycin 600 MG/50 ML PREMIX IV (07:10)
--- NOTE | 2024-09-24 09:43 | ANE.PACU2 ---
Inpatient post-anesthesia follow up: Airway intact: Yes Vital signs: Temperature 97.2 F Pulse Rate 68 Respiratory Rate 20 Blood Pressure 133/74 Pulse Oximetry 94 Oxygen Delivery Me thod Room Air Oxygen Flow Rate 6 Fraction of Inspir ed Oxygen Hydration adequate: Yes Nausea and vomiting: No Pain level: 1 Mental status: Baseline
--- NOTE | 2024-10-04 08:36 | PM.OP ---
Operative Report Date of procedure: October 04, 2024 Procedure done: No procedure was done patient became hypotensive to the point where the patient was requiring Levophed to keep his blood pressures up at this point we elected to not proceed with the surgery. Surgeon: Porter Pate, DO
== END 2024-09-24 09:43 | disposition home or self-care (01) ==
PROVIDERS: PCP Family Medicine; Visit Provider Orthopaedic Surgery
DX: M48.061 Spinal stenosis, lumbar region without neurogenic claudication (principal); I10 Essential (primary) hypertension; E11.9 Type 2 diabetes mellitus without complications; G47.33 Obstructive sleep apnea (adult) (pediatric); Z86.718 Personal history of other venous thrombosis and embolism; Z88.2 Allergy status to sulfonamides; Z88.0 Allergy status to penicillin; Z79.899 Other long term (current) drug therapy; Z85.46 Personal history of malignant neoplasm of prostate; Z96.652 Presence of left artificial knee joint; I95.9 Hypotension, unspecified; Z53.8 Procedure and treatment not carried out for other reasons
CPT/HCPCS: 36415; 36416; 82962; 86850; 86900; J0131; J0171; J0330; J1100; J2371; J2405; J2704; J3010; J3490; J7030; P9045

== ENCOUNTER 2025-03-15 12:33 | Emergency (ER) | payer OTHER, MEDICARE, SELFPAY ==
--- OUTSIDE RECORDS SUMMARY | 2018-03-15 04:40 | XMS_ITS | Continuity of Care Document ---
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 Role Phone Claribel OD OD, Leyla Unavailable Unavai lable Allergies, Adverse Reactions, Alerts Substance Reaction Status Criticality No Known Allergies Active No Inform ation Medications Medication Instructions Dosage Effective Dates (start - stop) Status Comments tamsulosin 0.4 mg capsule take 1 capsule by oral route every day 1/2 hour following the same meal each day 0.4 MG - Active Xarelto 15 mg tablet take 1 tablet by oral route every day with the evening meal 15 MG - Active trazodone 50 mg tablet take 1 tablet by oral route 3 times every day after meals 50 MG - Active DOXYCYCLINE HYCLATE (unknown strength) take 1 capsule by oral route every 12 hours Not Available - Active Procedures Procedure Date POSTOP FOLLOW-UP VISIT POSTOP FOLLOW-UP VISIT CATARACT SURG W/IOL, 1 STAGE POSTOP FOLLOW-UP VISIT POSTOP FOLLOW-UP VISIT CATARACT SURG W/IOL, 1 STAGE CATARACT SURG W/IOL, 1 STAGE OFFICE/OUTPATIENT VISIT, NEW OPHTHALMIC BIOMETRY RT DILATED EXAM RIGHT EYE DILATED EXAM LEFT EYE Advance Directives Directive Yes / No Effective Date File Name No Information Encounters Encounter Description Practice Location Reason(s) For Visit Diagnoses Date Provider Providers Copied on Encounter [facility], [address] [place] [address] [address], [place], [place], [id number], [place] tel:[phone] OPH CONSULT MARLI ISABEL Post-Op (chief complaint) Pseudoaphakia 8 Mustaphaheimer OD Leyla. [address] [facility], [address], [place], [place], [id number], [place]. tel:[phone] Referring Provider: Leyla Sanford OD, [address], [place], [address]. tel:[phone] [facility], [address] [place] [address], [id number], [place] tel:[phone] OPH CONSULT MARLI ISABEL Post-Op (chief complaint) Presence of intraocular lens 8 Yong Adam. [address] [place] [address], [address], [place], [place], [id number], [place]. tel:[phone] Referring Provider: Jair Norwood, [address] [place] [address] [address], [place], [address]. tel:[phone] [facility], [address] [place] [address], [id number], [place] tel:[phone] [facility] No Information 8 Yong Adam. [address] [place] [address], [address], [place], [place], [id number], [place]. tel:[phone] Referring Provider: Jair Norwood, [address] [place] [address] [address], [place], [address]. tel:[phone] [facility], [address] [place] [address], [id number], [place] tel:[phone] OPH CONSULT MARLI ISABEL Post-Op (chief complaint) Pseudoaphakia 8 Yong Adam. [address] [place] [address], [address] [place], [place], [id number], [place]. tel:[phone] Referring Provider: Jair Norwood, [address] [place] [address] [address], [place], [address]. tel:[phone] [facility], [address] [place] [address] [place], [id number], [place] tel:[phone] OPH CONSULT MARLI ISABEL Post-Op (chief complaint) Pseudoaphakia 8 Derheimer OD Leyla. [address] [facility], [address], [place], [place], [id number], [place]. tel:[phone] Referring Provider: Leyla Sanford OD, [address] [facility] [address], [place], [address]. tel:[phone] [facility], [address] [place] [address] [address], [place], [place], [id number], [place] tel:[phone] [facility] No Information 8 Yong Adam. [address] [place] [address], [place] [address], [place], [place], [id number], [place]. tel:[phone] Referring Provider: Jair Norwood, [address] [place] [address] [address], [place], [address]. tel:[phone] [facility], [address] [place] [address], [place], [place], [id number], [place] tel:[phone] [facility] No Information 8 Yong Adam. [address] [place] [address], [facility] 201, [place], [place], [id number], [place]. tel:[phone] Referring Provider: Jair Norwood, [address] [place] [address] [address], [place], [address]. tel:[phone] OFFICE/OUTPA TIENT VISIT, [facility], [address] [place] [address], [place], [place], [id number], [place] tel:[phone] OPH CONSULT MARLI ISABEL blurry vision (chief complaint) Age-related nuclear cataract, bilateralPoste rior subcapsular polar age-related cataract, bilateralOther vitreous opacities, bilateralOpen angle with borderline findings and low glaucoma risk in both eyes 8 Yong Adam. [address] [place] [address], [facility] 201, [place], [place], [id number], . tel:[phone] Referring Provider: Jair Norwood, [address] [facility] [address], [place], [address]. tel:[phone] Family History Family Member Type Diagnosis Age At Onset No Information Payers Payer name Insurance type Covered democrat ID Authoriza tion(s) No Information Social History Type Description Quantity Date Captured Comments Sex Male Smoking Status No Information Chief Complaint And Reason For Visit From encounter dated '03/15/2018 09:40'. Post-Op (chief complaint). Description: The status of the patient has improved. Additional information: Pt denies any discomfort with OU.Pt originally referred by the [facility]- no gtts. Reason For Referral Reason For Referral No Information History Of Present Illness Encounter Date Complaint History Of Prese nt Illness Post-Op The status of th e patient has improved. Additional information: Pt denies any discomfort with OU.Pt originally referred by the [facility]- no gtts. Post-Op The status of th e patient has improved. Additional information: 1 day 2nd eye [facility] much improved, patient very happy, current gtts are Besivance, Lotemax and Prolensa. Patient ref by Insurance company. Post-Op The status of th e patient has improved. The patient reports no pain. Additional information: PT reports no concerns with comfort and states his vision is great!std/distIns Co Referral to [facility] sched. 03/07 with MARV. Post-Op The status of th e patient has improved. The patient reports no pain. Additional information: Pt states vision is great. Pts insurance company ref. pt to [facility]. blurry vision The 67 year old male presents for evaluation of blurry vision in the right > left. It started about 1 year(s) ago. The symptom is constant. The condition is unstable. Pt complains of trouble with night driving and glaring OURef. by [facility] officeTamsulosin Functional Status Date Functional Assessmen t No Information Instructions Date Instruction Additional Infor elaine Impression/Plan Related to Pseud oaphakia Impression/Plan Related to Prese nce of intraocular lens Impression/Plan Related to Pseud oaphakia Impression/Plan Related to Pseud oaphakia Impression/Plan Related to Other vitreous opacities, bilateral Impression/Plan Related to Poste rior subcapsular polar age-related cataract, bilateral Impression/Plan Related to Age-r elated nuclear cataract, bilateral Impression/Plan Related to Open angle with borderline findings and low glaucoma risk in both eyes Assessments Type Assessment Date assessment Pseudoaphakia Patient Care Teams Name Effective Dates (start - stop) Status Members No Information
[2025-03-15] VITALS (9 sets, daily range): BP systolic 80–129; BP diastolic 61–79; PULSE 72–97; RESP 14–20; TEMP 36.8; O2SAT 94–98; BMI 35.2
--- OUTSIDE RECORDS SUMMARY | 2025-03-15 12:39 | XMS_ITS | Encounter Summary ---
Author Organization [facility] Address [address] [place] [address] Care Team Providers Care Camera Assembler Name Role Phone Unavailable Primary Care Provider Unavaildipak e Encounter Details Date Type Department Care Team (Late st Contact Info) Description 02/02/2016 Orders Only [facility] Radiology [address] [facility] [place] [address] System, Provider Not In, [address] [place] [address] Social History Tobacco Use Types Packs/Day Years Used Date Smoking Tobacco: Never Assessed Sex and Gender Information Value Date Recorded Sex Assigned at Not on file 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 Gender Identity Not on file Sexual Orientation Not on file documented as of this encounter Plan of Treatment Not on file documented as of this encounter Procedures Procedure Name Priority Date/Time Associated Diagnosis Comments OUTSIDE IMAGES 02/02/2016 1:52 PM CDT documented in this encounter Results * Outside Images (02/02/2016 1:52 PM CDT) Anatomical Region Laterality Modality N/A Radiographic Jessie ging 02/02/2016 1:52 PM CDT Narrative 02/02/2016 1:52 PM CDT Historic images from [facility] exist and can be viewed by using the hyperlink to access [employer]ITAL pacs: LIZY Moreno Procedure Note System, Provider Not In - 04/06/2019 Historic images from [facility] exist and can be viewed byusing the hyperlink to access proVITAL pacs: FINGER L us Provider Not In System MD [facility] Final Result documented in this encounter Visit Diagnoses Not on filedocumented in this encounter
--- OUTSIDE RECORDS SUMMARY | 2025-03-15 12:39 | XMS_ITS | Encounter Summary ---
Author Organization [facility] Address [address] [place] [address] Care Team Providers Care Pin Sorter And Bagger Name Role Phone Unavailable Primary Care Provider Unavaildipak e Encounter Details Date Type Department Care Team (Late st Contact Info) Description 07/22/2008 Orders Only [facility] [address] [facility] [place] [address] System, Provider Not In, [address] [place] [address] Social History Tobacco Use Types Packs/Day Years Used Date Smoking Tobacco: Never Assessed Sex and Gender Information Value Date Recorded Sex Assigned at Not on file 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 Gender Identity Not on file Sexual Orientation Not on file documented as of this encounter Plan of Treatment Not on file documented as of this encounter Procedures Procedure Name Priority Date/Time Associated Diagnosis Comments OUTSIDE IMAGES 07/22/2008 9:33 AM DETACKER documented in this encounter Results * Outside Images (07/22/2008 9:33 AM DETACKER) Anatomical Region Laterality Modality N/A Radiographic Jessie ging 07/22/2008 9:33 AM DETACKER Narrative 07/22/2008 9:33 AM DETACKER Historic images from [facility] exist and can be viewed by using the hyperlink to access [employer] pacs: DNR KNEE; BOTH KNEES STANDING, ANTEROPOSTERIOR Procedure Note System, Provider Not In - 08/01/2018 Historic images from [facility] exist and can be viewed by using thehyperlink to access [employer] pacs: DNR KNEE; BOTH KNEES STANDING,ANTEROPOSTERIOR us Provider Not In System MD [facility] Final Result documented in this encounter Visit Diagnoses Not on filedocumented in this encounter
--- OUTSIDE RECORDS SUMMARY | 2025-03-15 12:39 | XMS_ITS | Clinical Summary ---
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
--- OUTSIDE RECORDS SUMMARY | 2025-03-15 12:39 | XMS_ITS | Clinical Summary ---
Author Organization [facility] Address [address] [place]: Epic Prelude ADT [place] [address] Care Team Providers Care Security Sergeant Name Role Phone Unavailable Primary Care Provider Unavailabl e Allergies Active Allergy Reactions Criticality Noted Date Comments Hymenoptera Allergenic Extract Rash Low 12/18 Penicillins Rash Low 12/19/2015 Medications gabapentin (NEURONTIN) 100 mg capsule Take 100 mg by mouth 3 times daily. 12/19/2015 Active pravastatin (PRAVACHOL) 40 mg tablet Take 40 mg by mouth Daily LATE. 12/19/2015 Active tamsulosin (FLOMAX) 0.4 mg capsule Take 0.4 mg by mouth daily. 12/19/2015 Active sildenafiL (VIAGRA) 100 mg tablet Take 100 mg by mouth 1 time daily as needed for Erectile Dysfunction. 12/19/2015 Active meloxicam (MOBIC) 15 mg tablet Take 15 mg by mouth daily. 12/19/2015 Active warfarin (COUMADIN) 4 mg tablet Take 8 mg by mouth daily. 12/19/2015 Active cephALEXin (KEFLEX) 500 mg capsule Take 1 Capsule (500 mg) by mouth 4 times daily. 12 Capsule None 12/19/2015 Active ALPRAZolam (XANAX) 0.5 mg tablet Take 0.5 mg by mouth nightly as needed for Anxiety. 12/19/2015 Active HYDROcodone-chuyita taminophen (NORCO) 5-325 mg tablet Take 1 Tablet by mouth every 4 hours as needed for Pain, Moderate. Max Daily Amount: 6 Tablet 12 Tablet 0 12/19/2015 Active traZODone (DESYREL) 100 mg tablet Take 100 mg by mouth daily at bedtime. 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 Gender Identity Not on file Sexual Orientation Not on file Last Filed Vital Signs Vital Sign Reading Time Taken Comments Blood Pressure 151/79 12/19/2015 5:43 PM CDT Pulse - - Temperature 36.7 C (98 F) 12/19/2015 5:43 PM CDT Respiratory Rate 20 12/19/2015 5:43 PM CDT Oxygen Saturation - - Inhaled Oxygen Concentration - - Weight 117 kg (258 lb) 12/19/2015 5:43 PM CDT Height 182.9 cm (6') 12/19/2015 5:43 PM CDT Body Mass Index 34.99 12/19/2015 5:43 PM CDT Plan of Treatment Health Maintenance Due Date Last Done Comments DTAP/TDAP/TD VACCINES (1 - Tdap) 02/14/1967 PNEUMOCOCCAL VACCINE 50+ YEARS (1 of 1 - PCV) 02/14/19 98 ZOSTER VACCINE (1 of 2) 02/14/1998 RSV VACCINE (60+ or ) (1 - 1-dose 75+ series) 02/14/2023 INFLUENZA VACCINE (#1) 2025
--- OUTSIDE RECORDS SUMMARY | 2025-03-15 12:39 | XMS_ITS | Clinical Summary ---
Author Organization [facility] Address [address] [place] [address] Phone Care Team Providers Care Cooperative Education Coordinator Name Role Phone Unavailable Primary Care Provider Unavailabl e Allergies Active Allergy Reactions Criticality Noted Date Comments Hymenoptera Allergenic Extract Rash Low 12/18 Penicillins Rash Low 12/19/2015 Medications sildenafil (VIAGRA) 100 mg tablet Take 100 mg by mouth 1 time daily as needed for Erectile Dysfunction. Active tamsulosin (FLOMAX) 0.4 mg capsule Take 0.4 mg by mouth daily. Active warfarin (COUMADIN) 4 mg tablet Take 8 mg by mouth daily. Active ALPRAZolam (XANAX) 0.5 mg tablet Take 0.5 mg by mouth nightly as needed for Anxiety. Active traZODone (DESYREL) 100 mg tablet Take 100 mg by mouth daily at bedtime. Active gabapentin (NEURONTIN) 100 mg capsule Take 100 mg by mouth 3 times daily. Active pravastatin (PRAVACHOL) 40 mg tablet Take 40 mg by mouth Daily LATE. Active meloxicam (MOBIC) 15 mg tablet Take 15 mg by mouth daily. Active cephALEXin (KEFLEX) 500 mg capsule Take 1 Capsule (500 mg) by mouth 4 times daily. 12 Capsule None 12/19/2015 Active HYDROcodone-chuyita taminophen (NORCO) 5-325 mg tablet Take 1 Tablet by mouth every 4 hours as needed for Pain, Moderate. Max Daily Amount: 6 Tablet 12 Tablet 0 12/19/2015 Active Social History Tobacco Use Types Packs/Day Years Used Date Smoking Tobacco: Never Smokeless Tobacco: Never Alcohol Use Standard Drinks/Week Comments No 0 (1 standard drink = 0.6 oz pur e alcohol) Sex and Gender Information Value Date Recorded Sex Assigned at Not on file Legal Sex Male 5:33 PM CDT Gender Identity Not on file Sexual Orientation Not on file Last Filed Vital Signs Vital Sign Reading Time Taken Comments Blood Pressure 151/79 12/19/2015 5:43 PM CDT Pulse - - Temperature 36.7 C (98 F) 12/19/2015 5:43 PM CDT Respiratory Rate 20 12/19/2015 5:43 PM CDT Oxygen Saturation 95% 12/19/2015 5:43 PM CDT Inhaled Oxygen Concentration - - Weight 117 [...] 75+ series) 02/14/2023 INFLUENZA VACCINE (#1) 2025 Insurance MEDICARE PART A HOSPITAL ONLY [employer]
--- NOTE | 2025-03-15 12:41 | ECG_ITS ---
[facility] Date: 2025-03-15 Pat Name: Klever Voss Department: Room: Gender: Male Physical Director: : 1950 Requested By: Neftaly Moreno Order Number: [id number] Hua MD: Skyler Eldridge M.D. Measurements Intervals [place] Rate: 94 P: 33 ND: 165 QRS: -58 QRSD: 123 T: 32 QT: 351 QTc: 440 Interpretive Statements SINUS RHYTHM RIGHT BUNDLE BRANCH BLOCK [120+ ms QRS DURATION, UPRIGHT V1, 40+ ms S IN I/aVL/V4/V5/V6] LEFT ANTERIOR FASCICULAR BLOCK [QRS AXIS <= -45, QR IN I, RS IN II] Compared to ECG 09/07/2024 11:51:05 No significant changes Electronically Signed On 03-15-2025 13:44:45 CDT by Skyler Eldridge M.D. [email or web address]
--- NOTE | 2025-03-15 13:32 | XR_ITS ---
WS: [id number] XR chest 1V portable [id number] REASON FOR EXAM: dyspnea/cough FINDINGS: Mild tortuosity and ectasia of the descending thoracic aorta. Normal heart size. Calcified granulomatous disease bilaterally. No acute pulmonary parenchymal or pleural abnormality. Blunting of the left costophrenic angle of unknown chronicity most likely pleural thickening/scarring. Thoracolumbar scoliosis and degenerative spondylosis in the thoracic spine. 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 XR/XR chest 1V portable [id number] IMPRESSION: No acute chest abnormality as above.
[2025-03-15 14:02] LABS: Hematocrit 43.6 % (37-53); Hemoglobin 14.10 g/dL (11.27-16.99); Mean Corpuscular HGB Conc 32.3 g/dL (30-55); Mean Corpuscular Hemoglobin 28.5 pg (27-33); Mean Corpuscular Volume 88.3 fl (82-101); Nucleated Red Blood Cells % 0 %; Platelet Count 240 10^3/cmm (157-399); Red Blood Count 4.94 10^6/uL (3.85-5.65); White Blood Count 8.49 10^3/uL (3.29-11.43)
--- NOTE | 2025-03-15 14:04 | ECG_ITS ---
[facility]: [facility]25-03-15 Pat Name: Klever Voss Department: Room: Gender: Male Repairer General: : 1950 Requested By: Neftaly Moreno Order Number: [id number] Reading MD: BAMBI BERKOWITZ Measurements Intervals [place] Rate: 90 P: 35 OK: 172 QRS: -56 QRSD: 129 T: 20 QT: 374 QTc: 460 Interpretive Statements SINUS RHYTHM WITH OCCASIONAL VENTRICULAR PREMATURE COMPLEXES RIGHT BUNDLE BRANCH BLOCK [120+ ms QRS DURATION, UPRIGHT V1, 40+ ms S IN I/aVL/V4/V5/V6] LEFT ANTERIOR FASCICULAR BLOCK [QRS AXIS <= -45, QR IN I, RS IN II] WARNING: DATA QUALITY MAY AFFECT INTERPRETATION Compared to ECG 03/15/2025 12:44:26 Ventricular premature complex(es) now present Electronically Signed On 03-19-2025 18:48:17 CDT by BAMBI BERKOWITZ [email or web address]
[2025-03-15 14:20] LABS: Alanine Aminotransferase 23 U/L (0-41); Albumin Level 3.9 g/dL (3.5-5.2); Alkaline Phosphatase 63 U/L (40-130); Anion Gap 17.4 (5-19); Aspartate Amino Transferase 17 U/L (0-40); Blood Urea Nitrogen 15 mg/dL (8-23); Calcium 9.7 mg/dL (8.5-10.5); Carbon Dioxide 27 mmol/L (22-29); Chloride 95 mmol/L (98-107); Creatinine Clr Calc Pharmacy 68.3474; Globulin 3.5 g/dL (1.3-4.6); Glucose 120 mg/dL (65-115); Magnesium 1.3 mg/dL (1.7-2.3); Osmolality Calculated 282 mOsm/kg (285-295); Potassium 4.4 mmol/L (3.5-5.1); Sodium 135 mmol/L (136-145); Total Protein 7.4 g/dL (6.6-8.7)
--- NOTE | 2025-03-15 14:24 | W.ED.DIZZY ---
HPI - Dizziness General: Chief Complaint: Dizziness Stated Complaint: [facility] labs ([facility] by [facility]) Time Seen by Provider: 03/15/25 13:27 History of Present Illness: HPI Narrative: 75-year-old male who presents to the emergency room with hypotensive episodes. Has been getting orthostatic frequently. He has been going on for some weeks. He has at various agrees at different times a day. He is on lisinopril hydrochlorothiazide he is also on empagliflozin. He denies having any chest pain. No fever sweats or chills. No abdominal pain no chest pain at this time. Associated symptoms: Denies chest pain or chills Related Data Home Medications ?Medication ?Instructions ?Recorded ?Confirmed rivaroxaban 20 mg tablet 20 mg PO QPM 10/20/20 09/24/24 tamsulosin 0.4 mg capsule 0.8 mg PO QPM 10/20/20 09/24/24 lidocaine 4 % topical patch 1 patch topical DAILY PRN Pain 08/14/21 09/24/24 (Aspercreme (lidocaine)) lisinopril 20 mg tablet 20 mg PO DAILY 08/14/21 09/24/24 doxycycline hyclate 100 mg tablet 100 mg PO DAILY 09/07/24 09/24/24 duloxetine 30 mg capsule,delayed 30 mg PO DAILY 09/07/24 09/24/24 release empagliflozin 12.5 mg-metformin ER 1 tab PO DAILY 09/07/24 09/24/24 1,000 mg tablet,extended rel 24 hr ezetimibe 10 mg tablet 10 mg PO DAILY 09/07/24 09/24/24 omeprazole 10 mg capsule,delayed 10 mg PO DAILY 09/07/24 09/24/24 release sitagliptin 100 mg tablet 100 mg PO DAILY 09/07/24 09/24/24 Previous Rx's ?Medication ?Instructions ?Recorded flash glucose scanning reader #1 ea 12/09/22 (FreeStyle [place] 2 [place]) flash glucose sensor (U4EA WirelessStyle #6 ea 12/09/22 Fortunato 2 Sensor kit) Bone Growth Stimulator #1 ea 09/27/24 lisinopril 10 mg tablet 10 mg PO DAILY #30 tabs 03/15/25 Allergies Allergy/AdvReac Type Severity Reaction Status Date / Time Penicillins Allergy NA Verified 09/20/24 11:00 Sulfa (Sulfonamide Allergy Unknown Verified 09/20/24 11:00 Antibiotics) Review of Systems Const: Denies: fever(s) or chills Card: Denies: chest pain Resp: Denies: dyspnea GI: Denies: abdominal pain : Denies: dysuria, urinary frequency or urinary urgency Musc: Denies: neck pain or back pain Skin/Breast: Denies: rash PFSH ED PFSH: Medical History ESR raised KARLA positive Obesity PTSD (post-traumatic stress disorder) Hypertension Type 2 diabetes mellitus BPH w urinary obs/LUTS Chronic prostatitis Adenocarcinoma of prostate 4+3 Dx: 2017 Tx: Combination Therapy: XBRT/ADT F/u: Low PSAs and normal DREs Surgical History History of back surgery History of left knee replacement History of tonsillectomy Family History Father , 54 [place] Heart attack Hyperlipidemia Hypertension Mother , IN HER 80'S Cancer Lung Grandfather Heart attack Denies family history of Rheumatoid arthritis Diabetes Lupus Stroke Social History Smoking and tobacco/nicotine status: never used tobacco/nicotine Alcohol intake: current Alcohol intake frequency: few times a week Substance/Drug Use: never Marital status: Current occupational status: retired Physical Exam Const: GENERAL APPEARANCE: cooperative ORIENTATION/CONSCIOUSNESS: Yes awake, Yes oriented to person, Yes oriented to place and Yes oriented to time HENMT: COMMON NORMALS: normocephalic, atraumatic and hearing grossly normal bilaterally HEAD & SCALP: normocephalic and atraumatic Resp: COMMON NORMALS: normal respiratory effort, No retractions, No use of accessory muscles and clear to auscultation bilaterally AUSCULTATION: clear to auscultation bilaterally Cardio: COMMON NORMALS: regular rate, regular rhythm and No murmurs present (Cardio) RATE: regular rate RHYTHM: regular rhythm GI: COMMON NORMALS: Soft to palpation and No hepatosplenomegaly present AUSCULTATION: Yes normoactive bowel sounds PALPATION: Yes Soft to palpation, No Tenderness to palpation present (GI), No Guarding due to palpation present (GI) and Yes No hepatosplenomegaly present Extremity: COMMON NORMALS: normal to inspection, capillary refill normal, no clubbing, cyanosis or edema, no calf tenderness and no pedal edema Neuro: SENSORIUM/ORIENTATION: Yes oriented to person, Yes oriented to place and Yes oriented to time Skin: COMMON NORMALS: no rashes or lesions noted GENERAL SKIN EXAM: no rashes or lesions noted Course Vital Signs: Vital signs: Vital Signs Temperature 98.2 F 03/15/25 12:37 Pulse Rate 73 03/15/25 16:29 Respiratory Rate 16 03/15/25 12:37 Blood Pressure 129/79 03/15/25 16:29 Pulse Oximetry 97 03/15/25 12:37 Oxygen Delivery Me thod Room Air 03/15/25 12:37 MDM - Dizziness Medical Decision Making Patient improved after fluids she is feeling much better. He prefer to go home at this point his vital signs have improved he is no longer orthostatic we will have him stop lisinopril hydrochlorothiazide and do only 10 mg daily of lisinopril follow-up with his primary care doctor next week to reevaluate blood pressure. Medical Records I reviewed the patient's medical records. Lab Data I reviewed the patient's lab results. 03/15/25 13:47 03/15/25 13:47 Radiology Impressions Chest X-Ray 03/15/25 13:32 IMPRESSION: No acute chest abnormality as above. Laboratory Results WBC 8.49 10^3/uL (3.29-11.43) 03/15/25 13:47 RBC 4.94 10^6/uL (3.85-5.65) 03/15/25 13:47 Hgb 14.10 g/dL (11.27-16.99) 03/15/25 13:47 Hct 43.6 % (37-53) 03/15/25 13:47 MCV 88.3 fl (82-101) 03/15/25 13:47 MCH 28.5 pg (27-33) 03/15/25 13:47 MCHC 32.3 g/dL (30-55) 03/15/25 13:47 RDW 15.0 % (12.1-15.1) 03/15/25 13:47 Plt Count 240 10^3/cmm (157-399) 03/15/25 13:47 MPV 9.3 fL (7.4-10.4) 03/15/25 13:47 Neut % (Auto) 66.3 % 03/15/25 13:47 Lymph % (Auto) 20.0 % 03/15/25 13:47 [place] % (Auto) 5.9 % 03/15/25 13:47 Eos % (Auto) 3.5 % 03/15/25 13:47 Baso % (Auto) 0.8 % 03/15/25 13:47 Neut # (Auto) 5.62 10^3/uL (1.8-7.7) 03/15/25 13:47 Lymph # (Auto) 1.7 10^3/uL (0.8-4.8) 03/15/25 13:47 [place] # (Auto) 0.5 10^3/uL (0.2-0.9) 03/15/25 13:47 Eos # (Auto) 0.3 10^3/uL (0.0-0.8) 03/15/25 13:47 Baso # (Auto) 0.1 10^3/uL (0.0-0.1) 03/15/25 13:47 Nucleated RBC % (auto) 0 % 03/15/25 13:47 Nucleated RBCs # 0.0 /100WBC 03/15/25 13:47 Sodium 135 mmol/L (136-145) L 03/15/25 13:47 Potassium 4.4 mmol/L (3.5-5.1) 03/15/25 13:47 Chloride 95 mmol/L (98-107) L 03/15/25 13:47 Carbon Dioxide 27 mmol/L (22-29) 03/15/25 13:47 Anion Gap 17.4 (5-19) 03/15/25 13:47 BUN 15 mg/dL (8-23) 03/15/25 13:47 Creatinine 1.2 mg/dL (0.7-1.2) 03/15/25 13:47 GFR Calculation Not Reportable 03/15/25 13:47 Glucose 120 mg/dL (65-115) H 03/15/25 13:47 Calculated Osmolality 282 mOsm/kg (285-295) L 03/15/25 13:47 Calcium 9.7 mg/dL (8.5-10.5) 03/15/25 13:47 Magnesium 1.3 mg/dL (1.7-2.3) L 03/15/25 13:47 Total Bilirubin 0.4 mg/dL (0.15-1.2) 03/15/25 13:47 AST 17 U/L (0-40) 03/15/25 13:47 ALT 23 U/L (0-41) 03/15/25 13:47 Alkaline Phosphatase 63 U/L (40-130) 03/15/25 13:47 Creatine Kinase 44 U/L (39-308) 03/15/25 13:47 Total Protein 7.4 g/dL (6.6-8.7) 03/15/25 13:47 Albumin 3.9 g/dL (3.5-5.2) 03/15/25 13:47 Globulin 3.5 g/dL (1.3-4.6) 03/15/25 13:47 Urine Color Yellow (Yellow) 03/15/25 14:53 Urine Appearance Clear (CLEAR) 03/15/25 14:53 Urine pH 5.5 (5-7) 03/15/25 14:53 Ur Specific [place] 1.028 (1.005-1.030) 03/15/25 14:53 Urine Protein Negative (Negative) 03/15/25 14:53 Urine Glucose (UA) 3+ (Normal) H 03/15/25 14:53 Urine Ketones Trace (Negative) 03/15/25 14:53 Urine Blood Negative (Negative) 03/15/25 14:53 Urine Nitrate Negative (Negative) 03/15/25 14:53 Urine Bilirubin Negative (Negative) 03/15/25 14:53 Urine Urobilinogen 1.0 mg/dL (Negative) 03/15/25 14:53 Ur Leukocyte Esterase Negative (Negative) 03/15/25 14:53 Urine RBC 0-2 /hpf (0-2) 03/15/25 14:53 Urine WBC 0-5 /hpf (0-5) 03/15/25 14:53 Ur Squamous Epith Cells 0-5 /hpf (0-5) 03/15/25 14:53 Amorphous Sediment Not Reportable 03/15/25 14:53 Urine Bacteria None seen /hpf (NONE) 03/15/25 14:53 Hyaline Casts 0-4 /lpf H 03/15/25 14:53 All radiology interpretation(s) finalized by discharge Discharge Plan Discharge Patient Disposition: Home Clinical Impression: Orthostatic hypotension Condition: Stable Prescriptions: New lisinopril 10 mg tablet 10 mg PO DAILY Qty: 30 0RF No Action tamsulosin 0.4 mg capsule 0.8 mg PO QPM rivaroxaban 20 mg tablet 20 mg PO QPM Rx Instructions: must administer with evening meal lidocaine [Aspercreme (lidocaine)] 4 % adhesive patch,medicated 1 patch topical DAILY PRN (Reason: Pain) lisinopril 20 mg tablet 20 mg PO DAILY omeprazole 10 mg capsule,delayed release(DR/EC) 10 mg PO DAILY doxycycline hyclate 100 mg tablet 100 mg PO DAILY ezetimibe 10 mg tablet 10 mg PO DAILY empagliflozin-metformin 12.5-1,000 mg tablet, IR - ER, biphasic 24hr 1 tab PO DAILY duloxetine 30 mg capsule,delayed release(DR/EC) 30 mg PO DAILY sitagliptin 100 mg tablet 100 mg PO DAILY (DME) FreeStyle Fortunato 2 Sensor Kit See Rx Instructions .Route Qty: 6 0RF Rx Instructions: Change every 14 days (DME) FreeStyle [place] 2 [place] Misc See Rx Instructions .Route Qty: 1 0RF Rx Instructions: As directed (DME) Bone Growth Stimulator See Rx Instructions .Route .MEDSUPPLY Qty: 1 0RF Rx Instructions: As directed Discharge Orders: Discharge ED (Routine); Ordered 03/15/25 Ordered By: Neftaly Sanchez Referrals: Carmen Connell MD [Primary Care Provider, Family Practice] Discharge Diet: Usual diet Discharge Activity: Resume usual activity Patient Instructions: Opioid Safety, Pain Management, Patient Portal & Cherie Instructions Activity Restrictions/Additional Instructions: Thank you for choosing [facility] for your healthcare needs today. It is very important that you follow up as instructed or that you return to the Emergency Department should you have concerns or if your condition changes or worsens in any way. Recommend that you stop the lisinopril hydrochlorothiazide and instead take plain lisinopril 10 mg once daily. Follow-up with your primary care within the next week. Print Language: Maori Coding Level of Care Code ED Underground Utility Locator for Erlin Jimenez
[2025-03-15 15:24] LABS: Glucose Urine UA 3+ (Normal); Nitrate Urine Negative (Negative); Specific Gravity, Urine 1.028 (1.005-1.030)
[2025-03-15 15:28] LABS: Add Urine Microscopic? YES
== END 2025-03-15 16:51 | disposition home or self-care (01) ==
PROVIDERS: Emergency Provider Family Medicine; PCP Family Medicine
DX: I95.1 Orthostatic hypotension (principal); I10 Essential (primary) hypertension; E11.9 Type 2 diabetes mellitus without complications
CPT/HCPCS: 36415; 71045; 80053; 81001; 82550; 83735; 85025; 93005; 99285; J7030